=== PATIENT | male | born 1985 | race African-American/Black ===

== ENCOUNTER 2020-11-18 00:59 | Observation (INO) | payer SELFPAY ==
[~2020-11-18] VITALS: Ht 188 cm; Wt 90.9 kg
[~2020-11-18 00:59] MED LIST: BACL10TA PO; DIAZ5TAB4 PO; HYDR-2761 PO; LIDO700A21 TD; OLAN5TAB7 PO; POLY17PO52 PO; PSYL3.4P PO
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
[2020-11-18 01:54] LABS: BASO # 0.1 x10^3/uL (0.0-0.2); BASO % 1 % (0-3); EOS % 0 % (0-3); HEMATOCRIT 29.9 % (39.0-53.0); HEMOGLOBIN 10.2 g/dL (13.0-17.5); LYMPH # 1.3 x10^3/uL (1.0-4.8); LYMPH % 13 % (24-48); MEAN CORPUSCULAR HEMOGLOBIN 32 pg (25-35); MEAN CORPUSCULAR HGB CONC 34 g/dL (31-37); MEAN CORPUSCULAR VOLUME 93 fL (79-100); MONO # 0.7 x10^3/uL (0.0-1.1); MONO % 7 % (0-9); NEUT # 7.8 x10^3/uL (1.8-7.7); NEUT % 78 % (31-73); PLATELET COUNT 393 x10^3/uL (140-400); RED BLOOD COUNT 3.21 x10^6/uL (4.30-5.70); RED CELL DISTRIBUTION WIDTH 15.8 % (11.5-14.5)
[2020-11-18 02:12] LABS: CALCIUM 9.3 mg/dL (8.5-10.1); CREATININE 1.6 mg/dL (0.7-1.3); GFR 59.5; POTASSIUM 3.6 mmol/L (3.5-5.1)
[2020-11-18] MEDS ORDERED: CONTRAST GIVEN. MC PRN (02:15)
[2020-11-18 02:18] LABS: ALBUMIN 3.8 g/dL (3.4-5.0); PHOSPHORUS 3.7 mg/dL (2.6-4.7); TOTAL PROTEIN 7.7 g/dL (6.4-8.2)
[2020-11-18] MEDS ORDERED: IOHEXOL 300 MG/ML 100ML VIAL. IV ONE (02:30)
--- NOTE | 2020-11-18 02:40 | RAD ---
EXAM: CHEST ONE VIEW. HISTORY: Altered mental status, multiple myeloma. COMPARISON: None. FINDINGS: A frontal view of the chest is obtained. There are no confluent infiltrates. There is no pneumothorax or pleural effusion. The heart is not en larged. Thoracolumbar posterior fusion with laminectomies is partially visualized. IMPRESSION: 1. No confluent infiltrates. Electronically signed by: Alvaro Holloway MD (11/18/2020 2:37 AM) [facility]
--- NOTE | 2020-11-18 02:42 | RAD ---
EXAM: Bilateral feet 2 views. HISTORY: Bilateral heel wounds. Multiple myeloma. COMPARISON: None. FINDINGS: A moth-eaten appearance throughout the bones of both feet are consistent with the given his tory of multiple myeloma. No fractures are identified. Superficial ulcers are noted along both heels. There is no underlying cortical erosion to suggest acu te osteomyelitis. There is soft tissue swelling throughout both feet on the right greater than left. IMPRESSION: 1. Superficial bilateral heel ulcers. No evidence of acute osteomyelitis by radiographs. Correlate fo r cellulitis is or other causes of lower extremity edema. 2. Moth-eaten appearance of the bones throughout both feet may reflect multiple myeloma or disuse ost eopenia. Electronically signed by: Alvaro Holloway MD (11/18/2020 2:40 AM) [facility]
--- NOTE | 2020-11-18 03:25 | RAD ---
EXAM: CT HEAD WITHOUT CONTRAST. HISTORY: Multiple myeloma, altered mental status. TECHNIQUE: Computed tomography of the head was performed without intravenous contrast. One or more of the following individualized dose reduction techniques were utilized for this examination: 1. Automated exposure control. 2. Adjustment of the mA and/or kV according to patient size. 3. Use of iterative reconstruction technique. COMPARISON: None. FINDINGS: There is no intracranial hemorrhage. Montes-white differentiation is preserved. The ventricle s are normal in size and position. The visualized paranasal sinuses appear clear. The orbits are unremarkable. The temporal bones are un remarkable. The calvarium reveals no suspicious lesions. IMPRESSION: 1. No acute intracranial findings. Electronically signed by: Alvaro Holloway MD (11/18/2020 3:23 AM) [facility]
[2020-11-18 03:35] LABS: BILIRUBIN,URINE NEGATIVE (NEG); CLARITY,URINE CLEAR; COLOR,URINE YELLOW; NITRITE,URINE NEGATIVE (NEG); PH,URINE 5.5 (<5.0-8.0); PROTEIN,URINE 30 mg/dL (NEG-TRACE)
[2020-11-18 03:44] LABS: BARBITURATES NEG (NEG); BENZODIAZEPINES NEG (NEG); CANNABINOIDS NEG (NEG); COCAINE NEG (NEG); METHADONE NEG (NEG); OPIATES NEG (NEG); PHENCYCLIDINE NEG (NEG)
[2020-11-18 03:46] LABS: BACTERIA,URINE FEW /HPF (0-FEW); RBC,URINE TNTC /HPF (0-2); WBC,URINE TNTC /HPF (0-4)
[2020-11-18 03:47] LABS: AMPHETAMINE/METHAMPHETAMINE POS (NEG)
[2020-11-18] MEDS ORDERED: HALOPERIDOL LACTATE 5 MG/ML VIAL. IVP ONE (04:00)
--- NOTE | 2020-11-18 04:54 | EKG ---
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
[2020-11-18] MEDS ORDERED: HALOPERIDOL LACTATE 5 MG/ML VIAL. IM ONE (05:00)
--- NOTE | 2020-11-18 05:08 | NUR ---
Patient admitted from ED at [facility]. Patient was given antipsychotic medication in emergency room and arrived to floor sleeping and was responsive minimally to stimulation. This lasted thru duration of the rest of the metal container maker, and admission questions were unable to be answered, and assessment of patient was incomplete. Patient was under 1:1 observation at the time of admission. Patient will continue to be monitored at this time.
[2020-11-18 07:00] VITALS: BP 114/62
[2020-11-18] MEDS ORDERED: ZIPRASIDONE IM 20 MG VIAL. IM PRN (07:15)
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
[2020-11-18] MEDS ORDERED: ACETAMINOPHEN 325 MG TABLET. PO PRN (08:00)
[2020-11-18] MEDS ORDERED: DEXTROSE 50% 25 GM / 50ML DISP.SYRIN. IV PRN (08:00)
[2020-11-18] MEDS ORDERED: ONDANSETRON PF 4 MG/2 ML VIAL. IVP PRN (08:00)
[2020-11-18] MEDS ORDERED: DOCUSATE SODIUM 100 MG CAPSULE. PO PRN (08:00)
[2020-11-18] MEDS ORDERED: SENNOSIDES 8.6 MG TABLET PO PRN (08:00)
[2020-11-18] MEDS ORDERED: PROCHLORPERAZINE 10 MG/2 ML VIAL. IV PRN (08:00)
[2020-11-18] MEDS: IV NORMAL SALINE 1000ML BAG 1,000 ML IV SCH ×2 (08:11→18:01)
--- NOTE | 2020-11-18 16:42 | NUR ---
refused Addendum: 11/18/20 at 1642 by POLLO DOBSON RN RN Amended: Links added.
[2020-11-18 22:58] VITALS: BP 105/51
[2020-11-19 03:00] VITALS: BP 119/63
[2020-11-19] MEDS: IV NORMAL SALINE 1000ML BAG 1,000 ML IV SCH ×3 (03:59→23:54)
[2020-11-19 06:06] LABS: CALCIUM 8.5 mg/dL (8.5-10.1); CREATININE 1.1 mg/dL (0.7-1.3); GFR 91.6; MAGNESIUM 1.9 mg/dL (1.8-2.4); PHOSPHORUS 3.3 mg/dL (2.6-4.7); POTASSIUM 3.1 mmol/L (3.5-5.1)
[2020-11-19 06:16] LABS: BASO # 0.1 x10^3/uL (0.0-0.2); BASO % 1 % (0-3); EOS # 0.2 x10^3/uL (0.0-0.7); EOS % 5 % (0-3); HEMOGLOBIN 9.1 g/dL (13.0-17.5); LYMPH # 1.5 x10^3/uL (1.0-4.8); LYMPH % 31 % (24-48); MEAN CORPUSCULAR HEMOGLOBIN 32 pg (25-35); MEAN CORPUSCULAR HGB CONC 34 g/dL (31-37); MEAN CORPUSCULAR VOLUME 95 fL (79-100); MONO # 0.5 x10^3/uL (0.0-1.1); MONO % 9 % (0-9); NEUT # 2.6 x10^3/uL (1.8-7.7); NEUT % 53 % (31-73); PLATELET COUNT 322 x10^3/uL (140-400); RED BLOOD COUNT 2.84 x10^6/uL (4.30-5.70); RED CELL DISTRIBUTION WIDTH 16.4 % (11.5-14.5); WHITE BLOOD COUNT 4.8 x10^3/uL (4.0-11.0)
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
[2020-11-19] MEDS ORDERED: POTASSIUM CHLORIDE 20 MEQ TABLET.ER. PO ONE (09:15)
--- NOTE | 2020-11-19 10:12 | NUR ---
cheryl refused to have blood drawn. I"i know my heart and lungs are ok !"
--- NOTE | 2020-11-19 10:17 | NUR ---
SW following. Discussed with RN, pt left [facility] and was on the streets, room air, regular diet. Meth+ - PAT consulted. PT/OT ordered. ALAINA will continue to follow.
[2020-11-19 11:00] VITALS: BP 145/94
--- NOTE | 2020-11-19 12:00 | NUR ---
new rook boots ordered and placed bilaterally. father called and states that they would be up to visit this afternoon
--- NOTE | 2020-11-19 16:40 | NUR ---
Wound Care Wound Type/Assessment: Pt seen for wound care consult re: bilateral heel wounds. Pt agreeable to assessment, heel dressings removed. Left heel is nearly healed, healing stage III pressure ulcer, new skin covering, no odor or fluctuance noted, periwound clear. R heel Stage III, wound base soft, sloughy, macerated edges, bruising noted, mild odor, no periwound fluctuance or redness noted. R ischium has a small Stage III pressure ulcer with DTI, slough present, bruising noted, no fluctuance or periwound redness noted. Treatment Recommendations/Plan: Cleanse wounds with saline, pat dry. L Heel: Xeroform gauze and Aquacel foam, change every 3 days. R Heel: saline moistened Hydrofera blue, cover with Xeroform gauze, Aquacel foam, change every 3 days. R Ischium: Calazime cream BID and PRN, pt incontinent of bowel at this time, so chose not to apply dressing d/t incontinence. Education provided: to pt re: off-loading heels and buttocks for pressure reduction, dressing changes. Offloading surface/device: Rooke boots in place, Heelmedix boots at the bedside, wedge for offloading Recommended Referrals/Tests: N/A Discharge Recommendations for dressings: see treatment plan above
--- NOTE | 2020-11-19 18:00 | NUR ---
no change in condition. no family visited this shift
[2020-11-19 19:30] VITALS: BP 111/69
[2020-11-19 23:00] VITALS: BP 111/72
[2020-11-20 03:00] VITALS: BP 111/67
[2020-11-20 07:00] VITALS: BP 115/66
[2020-11-20 07:48] LABS: BASO % 1 % (0-3); EOS # 0.2 x10^3/uL (0.0-0.7); EOS % 4 % (0-3); HEMATOCRIT 24.8 % (39.0-53.0); HEMOGLOBIN 8.3 g/dL (13.0-17.5); LYMPH # 1.6 x10^3/uL (1.0-4.8); LYMPH % 41 % (24-48); MEAN CORPUSCULAR HEMOGLOBIN 32 pg (25-35); MEAN CORPUSCULAR HGB CONC 34 g/dL (31-37); MEAN CORPUSCULAR VOLUME 94 fL (79-100); MONO # 0.4 x10^3/uL (0.0-1.1); MONO % 10 % (0-9); NEUT # 1.8 x10^3/uL (1.8-7.7); NEUT % 45 % (31-73); PLATELET COUNT 315 x10^3/uL (140-400); RED BLOOD COUNT 2.65 x10^6/uL (4.30-5.70); RED CELL DISTRIBUTION WIDTH 16.2 % (11.5-14.5)
[2020-11-20 08:13] LABS: CALCIUM 8.1 mg/dL (8.5-10.1); CREATININE 0.9 mg/dL (0.7-1.3); GFR 115.5; MAGNESIUM 1.7 mg/dL (1.8-2.4); POTASSIUM 3.2 mmol/L (3.5-5.1)
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
--- NOTE | 2020-11-20 09:04 | RAD ---
EXAM: CT HEAD WITHOUT CONTRAST. HISTORY: Multiple myeloma, altered mental status. TECHNIQUE: Computed tomography of the head was performed without intravenous contrast. One or more of the following individualized dose reduction techniques were utilized for this examination: 1. Automated exposure control. 2. Adjustment of the mA and/or kV according to patient size. 3. Use of iterative reconstruction technique. COMPARISON: None. FINDINGS: There is no intracranial hemorrhage. Montes-white differentiation is preserved. The ventricles are normal in size and position. The visualized paranasal sinuses appear clear. The orbits are unremarkable. The temporal bones are unremarkable. The calvarium reveals no suspicious lesions. IMPRESSION: 1. No acute intracranial findings. MTDD
[2020-11-20] MEDS: IV NORMAL SALINE 1000ML BAG 1,000 ML IV SCH ×2 (10:00→20:00)
--- NOTE | 2020-11-20 10:28 | NUR ---
Pt. refusing to have IV restarted at this time. States he does not need a new one. Pt. asking for a bed bath. ELI Kahn sat him up, asked him to call when he needed help. Pt. then showed his groin area asking her was she going to help him with it. she stated no, made sure call light was within reach and told him to call if he needed assistance after he washed himself.
--- NOTE | 2020-11-20 11:08 | NUR ---
Pt.stating he wants to leave the hospital, notified.
[2020-11-20] MEDS ORDERED: POTASSIUM CHLORIDE 20 MEQ TABLET.ER. PO ONE (13:30)
--- NOTE | 2020-11-20 15:31 | NUR ---
Pt. refusing urine to be collected.
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
[2020-11-20] MEDS ORDERED: HYDROcodone/APAP 7.5/325MG 1 TAB TABLET PO PRN (16:15)
[2020-11-20 19:00] VITALS: BP 110/64
[2020-11-20 23:00] VITALS: BP 111/59
--- NOTE | 2020-11-21 04:58 | NUR ---
had BM incontinent, cleansed and calazine cream applied to coccyx , patient refused turning off his back, Refused rook boots ..
[2020-11-21] MEDS: IV NORMAL SALINE 1000ML BAG 1,000 ML IV SCH (06:00)
--- NOTE | 2020-11-21 06:20 | NUR ---
refused IV access restarted , IV fluids unable to administer.
[2020-11-21] MEDS ORDERED: POTASSIUM CHLORIDE 20 MEQ TABLET.ER. PO SCH (08:00)
[2020-11-21 09:01] LABS: BASO % 1 % (0-3); EOS # 0.2 x10^3/uL (0.0-0.7); EOS % 5 % (0-3); HEMATOCRIT 25.9 % (39.0-53.0); HEMOGLOBIN 8.9 g/dL (13.0-17.5); LYMPH # 1.4 x10^3/uL (1.0-4.8); LYMPH % 34 % (24-48); MEAN CORPUSCULAR HEMOGLOBIN 32 pg (25-35); MEAN CORPUSCULAR HGB CONC 35 g/dL (31-37); MEAN CORPUSCULAR VOLUME 93 fL (79-100); MONO # 0.4 x10^3/uL (0.0-1.1); MONO % 9 % (0-9); NEUT # 2.2 x10^3/uL (1.8-7.7); NEUT % 52 % (31-73); PLATELET COUNT 307 x10^3/uL (140-400); RED BLOOD COUNT 2.77 x10^6/uL (4.30-5.70); RED CELL DISTRIBUTION WIDTH 15.8 % (11.5-14.5); WHITE BLOOD COUNT 4.2 x10^3/uL (4.0-11.0)
[2020-11-21 09:10] LABS: CALCIUM 8.4 mg/dL (8.5-10.1); GFR 102.3; MAGNESIUM 1.7 mg/dL (1.8-2.4); POTASSIUM 3.6 mmol/L (3.5-5.1)
[2020-11-21 11:00] VITALS: BP 117/75
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
--- NOTE | 2020-11-21 13:59 | NUR ---
after several requests for going to rehab or somewhere else. explained that he could not go there related to not having insurance. wants to go out of state; again explained would could not just send him out of state without doctor and acceptance. his choices are home with his parents or hotel/motel. did he have money to go to a hotel? He states no. cleansed and new pj bottoms and top placed. refused wound pictures. rooke boots placed. dismissed to home with father. going home with catheter
[2020-11-21 14:13] LABS: IMMUNOGLOBULIN A 162 mg/dL (90-386); IMMUNOGLOBULIN G 989 mg/dL (603-1613); IMMUNOGLOBULIN M 62 mg/dL (20-172)
--- NOTE | 2020-11-21 15:31 | NUR ---
SW following. Discussed with RN, pt discharged home with father after long discussion. Family advised to try care home facilities when pt's medicaid has been approved.
== END 2020-11-21 14:07 | disposition home or self-care (01) ==
LOC: ER 00:59 → 4 NORTH 04:35
PROVIDERS: ADMIT Internal Medicine; ATTEND Internal Medicine
DX: G92 Toxic encephalopathy (principal); R41.82 Altered mental status, unspecified; F41.9 Anxiety disorder, unspecified; G82.20 Paraplegia, unspecified; L97.419 Non-pressure chronic ulcer of right heel and midfoot with unspecified severity; L97.429 Non-pressure chronic ulcer of left heel and midfoot with unspecified severity; M62.82 Rhabdomyolysis; F22 Delusional disorders; N17.0 Acute kidney failure with tubular necrosis; D63.8 Anemia in other chronic diseases classified elsewhere; R74.8 Abnormal levels of other serum enzymes; Z85.79 Personal history of other malignant neoplasms of lymphoid, hematopoietic and related tissues
CPT/HCPCS: 36415; 70470; 71045; 73620; 80048; 80053; 80307; 81001; 82550; 82784; 83605; 83735; 84100; 84484; 85025; 86334; 86335; 87040; 93005; 96361; 96374; 96375; 96376; 97162; 97166; 97530; 99285; G0378; G0480; J1630; J2060; J7030; Q9967; 70460; G0379